=== PATIENT | female | born 1970 | race Caucasian/White ===

== ENCOUNTER 2018-12-20 06:50 | Inpatient (IN) | payer SELFPAY, MEDICAID ==
[2018-12-20] MEDS: ONDANSETRON 4 MG INJ IV (07:34)
[2018-12-20] MEDS: morphine 4 MG/ML VIAL IV ×2 (07:34→10:15)
[2018-12-20 07:42] LABS: ADD MAN DIFF? NO
[2018-12-20 07:43] LABS: ABNORMAL IP MESSAGE 1; BASOPHILS % 0.4 % (0.0-2.0); EOSINOPHILS % 0.5 % (0.0-7.0); LYMPHOCYTES # 0.8 10^3/ul (0.8-2.9); LYMPHOCYTES % 9.7 % (15.0-51.0); MEAN CORPUSCULAR HEMOGLOBIN 15.9 pg (29.0-33.0); MEAN CORPUSCULAR HGB CONC 27.5 g/dl (32.0-37.0); MEAN CORPUSCULAR VOLUME 57.7 fl (82.0-101.0); MONOCYTE # 0.3 10^3/ul (0.3-0.9); MONOCYTES % 3.1 % (0.0-11.0); NEUTROPHIL # 7.1 10^3/ul (1.6-7.5); NEUTROPHILS % 85.3 % (39.0-77.0); PLATELET COUNT 492 10^3/UL (140-415); RED BLOOD COUNT 4.16 10^6/ul (4.20-5.40); RED CELL DISTRIBUTION WIDTH 21.6 % (11.5-14.5)
[2018-12-20 07:43] LABS: WHITE BLOOD COUNT 8.4 10^3/ul (4.8-10.8)
[2018-12-20 07:51] LABS: HEMOGLOBIN 6.6 g/dl (12.0-16.0); POSITIVE DIFF @See below
[2018-12-20 07:52] LABS: ADD UMIC YES; UR ASCORBIC ACID NEGATIVE (NEGATIVE); UR BACTERIA FEW /HPF (NONE SEEN); UR BILIRUBIN (Dip) NEGATIVE (NEGATIVE); UR BLOOD (Dip) 2+ mg/dL (NEGATIVE); UR CLARITY CLOUDY (CLEAR); UR COLOR YELLOW (YELLOW); UR GLUCOSE (Dip) NEGATIVE (NEGATIVE); UR KETONES (Dip) NEGATIVE (NEGATIVE); UR LEUKOCYTE ESTERASE (Dip) NEGATIVE Leu/ul (NEGATIVE); UR MUCUS FEW /HPF (NONE SEEN); UR NITRITE (Dip) NEGATIVE (NEGATIVE); UR RBC 85 /HPF (0-5); UR SQUAMOUS EPITHELIAL CELL FEW /HPF (FEW); UR TOTAL PROTEIN (Dip) 2+ mg/dl (NEGATIVE); UR UROBILINOGEN (Dip) NEGATIVE (NEGATIVE); UR WBC 8 /HPF (0-5)
[2018-12-20 08:06] LABS: ALANINE AMINOTRANSFERASE 17 IU/L (13-69); ALBUMIN 4.3 g/dl (3.3-4.9); ALBUMIN/GLOBULIN RATIO 1.13; ALKALINE PHOSPHATASE 102 IU/L (42-121); ANION GAP 12 (5-13); ASPARTATE AMINO TRANSFERASE 21 IU/L (15-46); BILIRUBIN,INDIRECT 0.4 mg/dl (0-1.1); BILIRUBIN,TOTAL 0.4 mg/dl (0.2-1.3); BLOOD UREA NITROGEN 13 mg/dl (7-20); CALCIUM 9.4 mg/dl (8.4-10.2); CARBON DIOXIDE 23 mmol/L (21-31); CHLORIDE 107 mmol/L (97-110); CREATININE 0.68 mg/dl (0.44-1.00); Estimated GFR > 60 mL/min (>60); GLUCOSE 159 mg/dl (70-220); LIPASE 77 U/L (23-300); POTASSIUM 3.8 mmol/L (3.5-5.1); SODIUM 142 mmol/L (135-144); TOTAL PROTEIN 8.1 g/dl (6.1-8.1)
[2018-12-20 08:18] LABS: TROPONIN-I < 0.012 ng/ml (0.000-0.120)
[2018-12-20] MEDS ORDERED: ACETAMINOPHEN 325 MG TAB PO (09:00)
[2018-12-20] MEDS ORDERED: ONDANSETRON 4 MG INJ IV ×2 (09:00→11:30)
[2018-12-20 09:27] LABS: ANISOCYTOSIS 3+ (0-0); BAND NEUTROPHILS #M 0.2 10^3/ul (0.0-0.6); BAND NEUTROPHILS % (M) 3 % (0-4); EOSINOPHILS % (M) 1 % (0-7); GIANT THROMBO% (M) 3 % (0-0); HYPOCHROMASIA 1+ (0-0); LYMPHOCYTES #M 0.5 10^3/ul (0.8-2.9); LYMPHOCYTES % (M) 6 % (15-51); MICROCYTOSIS 3+ (0-0); OVALOCYTES 1+ (0-0); PLATELET ESTIMATE NORMAL; POIKILOCYTOSIS 2+ (0-0); POLYCHROMASIA 1+ (0-0); SEG NEUT #M 7.6 10^3/ul (1.6-7.5); SEGMENTED NEUTROPHILS (M) % 90 % (39-77); SMUDGE%M 1 % (0-0)
[2018-12-20] MEDS ORDERED: hydrALAzine 20 MG INJ IV (11:30)
[2018-12-20] MEDS ORDERED: NACL 0.9% 3 ML SYG IV (11:30)
[2018-12-20] MEDS ORDERED: ALBUTEROL/IPRATROPIUM (NEB) 3 ML AMP HHN (11:30)
[2018-12-20] MEDS ORDERED: NITROGLYCERIN (SL) 0.4 MG TAB SL (11:30)
[2018-12-20] MEDS ORDERED: LORAZEPAM 2 MG INJ IV (11:30)
[2018-12-20] MEDS ORDERED: DOCUSATE SODIUM 100 MG CAP PO (11:30)
[2018-12-20] MEDS ORDERED: MAGNESIUM HYDROXIDE 30ML CUP PO (11:30)
[2018-12-20] MEDS: SOD CHLORIDE 0.9% 1,000 ML IV ×2 (11:42→21:10)
[2018-12-20 11:45] LABS: IMMEDIATE SPIN CROSSMATCH 1 3
[2018-12-20] MEDS: morphine 2 MG INJ IV (11:47)
[2018-12-20] MEDS: SOD CHLORIDE 0.9% 0 ML IV (12:11)
[2018-12-20 12:51] LABS: IRON 10 ug/dl (35-150)
[2018-12-20 12:52] LABS: INR 0.93; PARTIAL THROMBOPLASTIN TIME 24.1 Sec (23.0-35.0); PROTIME 12.6 Sec (11.9-14.9)
[2018-12-20 13:00] LABS: % IRON SATURATION 2 % SAT (22-52); TOTAL IRON BINDING CAPACITY 432 ug/dl (241-421)
[2018-12-20 13:08] LABS: FREE T4 (FREE THYROXINE) 1.14 ng/dl (0.64-1.79)
[2018-12-20 15:27] LABS: TROPONIN-I < 0.012 ng/ml (0.000-0.120)
[2018-12-20] MEDS: SOD FERRIC GLUC COMPLX 125 MG in SOD CHLORIDE 0.9% 100 ML IVPB (16:06)
[2018-12-20] MEDS: ASPIRIN (EC) 81 MG TAB PO (16:06)
[2018-12-20] MEDS: IOHEXOL 14.3 MG(I)/ML (ADULT) BTL PO (18:12)
[2018-12-20] MEDS: HYDROCODONE/APAP (5/325) TAB PO (18:16)
[2018-12-20 23:31] LABS: TROPONIN-I < 0.012 ng/ml (0.000-0.120)
[2018-12-21] MEDS: PANTOPRAZOLE 40 MG INJ IV (05:25)
[2018-12-21] MEDS: SOD CHLORIDE 0.9% 1,000 ML IV (06:14)
[2018-12-21 06:24] LABS: ADD MAN DIFF? NO
[2018-12-21 06:30] LABS: WHITE BLOOD COUNT 10.6 10^3/ul (4.8-10.8)
[2018-12-21 06:30] LABS: ABNORMAL IP MESSAGE 1; BASOPHILS % 0.2 % (0.0-2.0); EOSINOPHILS # 0.1 10^3/ul (0.0-0.5); EOSINOPHILS % 0.7 % (0.0-7.0); HEMATOCRIT 24.6 % (37.0-47.0); HEMOGLOBIN 7.1 g/dl (12.0-16.0); LYMPHOCYTES # 1.1 10^3/ul (0.8-2.9); LYMPHOCYTES % 10.4 % (15.0-51.0); MEAN CORPUSCULAR HEMOGLOBIN 17.3 pg (29.0-33.0); MEAN CORPUSCULAR HGB CONC 28.9 g/dl (32.0-37.0); MEAN PLATELET VOLUME 9.3 fl (7.4-10.4); MONOCYTE # 0.8 10^3/ul (0.3-0.9); MONOCYTES % 7.7 % (0.0-11.0); NEUTROPHIL # 8.5 10^3/ul (1.6-7.5); NEUTROPHILS % 79.8 % (39.0-77.0); NUCLEATED RED BLOOD CELLS% 0.4 /100WBC (0.0-0.0); PLATELET COUNT 432 10^3/UL (140-415); RED CELL DISTRIBUTION WIDTH 23.4 % (11.5-14.5)
[2018-12-21 06:49] LABS: POSITIVE DIFF @See below
[2018-12-21 07:08] LABS: ANION GAP 8 (5-13); BLOOD UREA NITROGEN 7 mg/dl (7-20); CALCIUM 8.4 mg/dl (8.4-10.2); CARBON DIOXIDE 25 mmol/L (21-31); CHLORIDE 107 mmol/L (97-110); CHOL/HDL RATIO 2.9 RATIO; CHOLESTEROL 92 mg/dl (100-200); CREATININE 0.59 mg/dl (0.44-1.00); Estimated GFR > 60 mL/min (>60); GLUCOSE 117 mg/dl (70-220); HDL CHOLESTEROL 31 mg/dl (34-88); LDL CHOLESTEROL,CALCULATED 48 mg/dl; MAGNESIUM 2.2 mg/dl (1.7-2.5); PHOSPHORUS 3.1 mg/dl (2.5-4.9); POTASSIUM 4.3 mmol/L (3.5-5.1); SODIUM 140 mmol/L (135-144); TRIGLYCERIDES 67 mg/dl (0-149)
[2018-12-21 07:29] LABS: CANCER ANTIGEN 19-9 3.2 U/ml (0.0-37.0)
[2018-12-21 07:34] LABS: ALPHA FETOPROTEIN 1.33 IU/L (0.00-7.21)
[2018-12-21 08:08] LABS: TROPONIN-I < 0.012 ng/ml (0.000-0.120)
[2018-12-21 09:24] LABS: HEMOGLOBIN A1C 5.7 % (0-5.9)
[2018-12-21] MEDS: BISACODYL (EC) 5 MG TAB PO (13:39)
[2018-12-21] MEDS: SOD FERRIC GLUC COMPLX 125 MG in SOD CHLORIDE 0.9% 100 ML IVPB (14:25)
[2018-12-21] MEDS: ACETAMINOPHEN 325 MG TAB PO (17:12)
[2018-12-21] MEDS: POLYETHYLENE GLYCOL 3350 119 GM POWDER PO (21:27)
[2018-12-21] MEDS: MAGNESIUM CITRATE 300 ML BTL PO (21:27)
[2018-12-22 02:18] LABS: OCCULT BLOOD STOOL NEGATIVE (NEGATIVE)
[2018-12-22] MEDS: POLYETHYLENE GLYCOL 3350 119 GM POWDER PO (05:27)
[2018-12-22] MEDS: PANTOPRAZOLE 40 MG INJ IV (05:27)
[2018-12-22 06:46] LABS: ADD MAN DIFF? NO
[2018-12-22 06:49] LABS: WHITE BLOOD COUNT 12.2 10^3/ul (4.8-10.8)
[2018-12-22 06:49] LABS: ABNORMAL IP MESSAGE 1; BASOPHILS % 0.2 % (0.0-2.0); EOSINOPHILS # 0.1 10^3/ul (0.0-0.5); HEMATOCRIT 30.6 % (37.0-47.0); HEMOGLOBIN 8.9 g/dl (12.0-16.0); LYMPHOCYTES # 1.4 10^3/ul (0.8-2.9); LYMPHOCYTES % 11.8 % (15.0-51.0); MEAN CORPUSCULAR HEMOGLOBIN 18.1 pg (29.0-33.0); MEAN CORPUSCULAR HGB CONC 29.1 g/dl (32.0-37.0); MEAN CORPUSCULAR VOLUME 62.1 fl (82.0-101.0); MEAN PLATELET VOLUME 9.1 fl (7.4-10.4); MONOCYTE # 0.8 10^3/ul (0.3-0.9); MONOCYTES % 6.4 % (0.0-11.0); NEUTROPHIL # 9.7 10^3/ul (1.6-7.5); NEUTROPHILS % 79.3 % (39.0-77.0); NUCLEATED RED BLOOD CELLS% 0.2 /100WBC (0.0-0.0); PLATELET COUNT 481 10^3/UL (140-415); RED BLOOD COUNT 4.93 10^6/ul (4.20-5.40); RED CELL DISTRIBUTION WIDTH 26.3 % (11.5-14.5)
[2018-12-22 06:56] LABS: POSITIVE DIFF @See below
[2018-12-22 07:14] LABS: BLOOD UREA NITROGEN 4 mg/dl (7-20); CALCIUM 9.1 mg/dl (8.4-10.2); CARBON DIOXIDE 24 mmol/L (21-31); CHLORIDE 105 mmol/L (97-110); CREATININE 0.59 mg/dl (0.44-1.00); Estimated GFR > 60 mL/min (>60); GLUCOSE 142 mg/dl (70-220); POTASSIUM 3.4 mmol/L (3.5-5.1)
[2018-12-22 07:19] LABS: ANION GAP 11 (5-13); SODIUM 140 mmol/L (135-144)
[2018-12-22] MEDS: BISACODYL (EC) 5 MG TAB PO (08:00)
[2018-12-22 09:48] LABS: FERRITIN 75.2 ng/ml (6.2-137.0)
[2018-12-22] MEDS: PROPOFOL 40 ML (13:51)
[2018-12-22] MEDS: FENTAnyl 50 MCG/ML VIAL (13:52)
[2018-12-22] MEDS: LIDOCAINE 2% (SDV) 5 ML INJ (13:52)
[2018-12-22] MEDS: SOD FERRIC GLUC COMPLX 125 MG in SOD CHLORIDE 0.9% 100 ML IVPB (16:04)
[2018-12-22] MEDS: IOHEXOL 300MG/ML 150 ML BTL (16:05)
[2018-12-22] MEDS: SOD CHLORIDE 0.9% 100 ML (16:05)
[2018-12-23] MEDS: PANTOPRAZOLE (EC) 40 MG TAB PO (05:45)
[2018-12-23 06:44] LABS: ADD MAN DIFF? NO
[2018-12-23 06:46] LABS: ABNORMAL IP MESSAGE 1; BASOPHILS % 0.4 % (0.0-2.0); EOSINOPHILS # 0.3 10^3/ul (0.0-0.5); EOSINOPHILS % 2.6 % (0.0-7.0); HEMATOCRIT 30.5 % (37.0-47.0); HEMOGLOBIN 8.8 g/dl (12.0-16.0); LYMPHOCYTES # 1.6 10^3/ul (0.8-2.9); LYMPHOCYTES % 15.3 % (15.0-51.0); MEAN CORPUSCULAR HEMOGLOBIN 18.1 pg (29.0-33.0); MEAN CORPUSCULAR HGB CONC 28.9 g/dl (32.0-37.0); MEAN CORPUSCULAR VOLUME 62.9 fl (82.0-101.0); MEAN PLATELET VOLUME 9.1 fl (7.4-10.4); MONOCYTE # 0.8 10^3/ul (0.3-0.9); MONOCYTES % 7.7 % (0.0-11.0); NEUTROPHIL # 7.8 10^3/ul (1.6-7.5); NEUTROPHILS % 73.3 % (39.0-77.0); NUCLEATED RED BLOOD CELLS% 0.2 /100WBC (0.0-0.0); PLATELET COUNT 440 10^3/UL (140-415); RED BLOOD COUNT 4.85 10^6/ul (4.20-5.40)
[2018-12-23 06:46] LABS: WHITE BLOOD COUNT 10.7 10^3/ul (4.8-10.8)
[2018-12-23 06:52] LABS: POSITIVE DIFF @See below
[2018-12-23 07:10] LABS: ANION GAP 10 (5-13); BLOOD UREA NITROGEN 8 mg/dl (7-20); CALCIUM 8.9 mg/dl (8.4-10.2); CARBON DIOXIDE 25 mmol/L (21-31); CHLORIDE 105 mmol/L (97-110); CREATININE 0.65 mg/dl (0.44-1.00); Estimated GFR > 60 mL/min (>60); GLUCOSE 100 mg/dl (70-220); POTASSIUM 3.6 mmol/L (3.5-5.1); SODIUM 140 mmol/L (135-144)
[2018-12-23] MEDS: SOD FERRIC GLUC COMPLX 125 MG in SOD CHLORIDE 0.9% 100 ML IVPB (13:00)
== END 2018-12-23 15:30 | disposition home or self-care (01) | DRG 812 ==
LOC: E/R 06:50 → PP2 08:51 → TEL 16:40
PROC: 0DB68ZX Excision of Stomach, Via Natural or Artificial Opening Endoscopic, Diagnostic (ICD-10-PCS; principal; 2018-12-22 13:05)
PROC: 0DJD8ZZ Inspection of Lower Intestinal Tract, Via Natural or Artificial Opening Endoscopic (ICD-10-PCS; 2018-12-22 13:05)
PROC: 30233N1 Transfusion of Nonautologous Red Blood Cells into Peripheral Vein, Percutaneous Approach (ICD-10-PCS; 2018-12-22 13:05)
DX: D50.9 Iron deficiency anemia, unspecified (principal); Z68.43 Body mass index [BMI] 50.0-59.9, adult; R00.1 Bradycardia, unspecified; R10.9 Unspecified abdominal pain; E66.9 Obesity, unspecified; R07.9 Chest pain, unspecified; K20.9 Esophagitis, unspecified; K44.9 Diaphragmatic hernia without obstruction or gangrene; K29.70 Gastritis, unspecified, without bleeding; K64.8 Other hemorrhoids; K80.20 Calculus of gallbladder without cholecystitis without obstruction
CPT/HCPCS: 36415; 36430; 71045; 74177; 76705; 76856; 80048; 80053; 80061; 81001; 82105; 82270; 82728; 83036; 83540; 83690; 83735; 84100; 84439; 84443; 84484; 84703; 85025; 85610; 85730; 86301; 86644; 86850; 86900; 86901; 86920; 88305; 88312; 93005; 96374; 96375; 97161; 99285-25